=== PATIENT | male | born 1985 | race Caucasian/White ===

== ENCOUNTER 2022-02-28 09:50 | Inpatient (IN) ==
[2022-02-28] MEDS ORDERED: ceFAZolin 2,000 MG in Water for inj. (sterile) 20 ML IVP ONE (10:21)
[2022-02-28] MEDS ORDERED: Iopamidol - 370 500 ML MLS IVP ONE (10:21)
[2022-02-28 11:04] LABS: Basophils % 0.2 %; Eosinophils % 0.6 %; Hematocrit 43.3 % (37.5-50.1); Hemoglobin 14.8 g/dL (12.9-16.9); Immature Granulocytes % 0.9 % (0-4); Lymphocytes # 1.3 K/mcL (0.6-4.6); Mean Corpuscular HGB Conc 34.2 g/dL (31.6-35.5); Mean Corpuscular Hemoglobin 30.4 pg (28.0-33.3); Mean Corpuscular Volume 88.9 fL (83.0-100.0); Mean Platelet Volume 9.5 fL (9.4-12.4); Monocytes # 0.3 K/mcL (0.0-1.3); Monocytes % 5.2 %; Neutrophils # 3.8 K/mcL (1.6-8.9); Platelet Count 221 K/mcL (140-400); Red Blood Count 4.87 M/mcL (4.19-5.50); Segmented Neutrophils % 69.1 %; White Blood Count 5.4 K/mcL (4.3-11.1)
[2022-02-28 11:22] LABS: BUN/Creatinine Ratio 11 (6-26); Blood Urea Nitrogen 9 mg/dL (6-20); C-Reactive Protein 54 mg/L (Less than 10); Calcium 9.9 mg/dL (8.6-10.3); Carbon Dioxide 29 mEq/L (23-29); Chloride 99 mEq/L (98-107); Glucose 181 mg/dL (70-105); Osmolality,Calculated 283 (280-300); Potassium 4.3 mEq/L (3.5-5.1); Sodium 135 mEq/L (136-145)
[2022-02-28] MEDS ORDERED: Ibuprofen 400 MG TABLET PO PRN (12:18)
[2022-02-28] MEDS ORDERED: Ondansetron 4 MG/2 ML VIAL IVP PRN (12:18)
[2022-02-28] MEDS ORDERED: Melatonin 3 MG TABLET PO PRN (12:18)
[2022-02-28] MEDS ORDERED: Dextrose Gel 15 GM/37.5 ML TUBE PO PRN ×2 (12:21)
[2022-02-28] MEDS ORDERED: D5% in Water 1,000 ML IVC PRN (12:21)
[2022-02-28] MEDS ORDERED: *HR* Dextrose 50 % in Water (Syg) 50 ML SYRINGE IVP PRN (12:21)
[2022-02-28] MEDS ORDERED: Nicotine 2 MG GUM BC PRN (13:27)
[2022-02-28] MEDS: Nicotine 21 MG PATCH.TD24 TD SCH (14:05)
[2022-02-28] MEDS: CeFAZolin 2,000 MG/120 ML BAG IVPB SCH (18:14)
[2022-02-28] MEDS: Acetaminophen 325 MG TABLET PO PRN (18:53)
[2022-02-28] MEDS: Ibuprofen 400 MG TABLET PO PRN (21:01)
[2022-03-01] MEDS: CeFAZolin 2,000 MG/120 ML BAG IVPB SCH ×3 (03:09→18:47)
[2022-03-01] MEDS: Nicotine 21 MG PATCH.TD24 TD SCH (08:13)
[2022-03-01] MEDS: lisinopriL 10 MG TABLET PO SCH (11:57)
[2022-03-01] MEDS: Acetaminophen 325 MG TABLET PO PRN (20:32)
[2022-03-02] MEDS: CeFAZolin 2,000 MG/120 ML BAG IVPB SCH ×2 (02:37→11:11)
[2022-03-02 03:03] LABS: Hematocrit 42.4 % (37.5-50.1); Mean Corpuscular Hemoglobin 29.2 pg (28.0-33.3); Mean Corpuscular Volume 88.5 fL (83.0-100.0); Mean Platelet Volume 9.2 fL (9.4-12.4); Platelet Count 213 K/mcL (140-400); Red Blood Count 4.79 M/mcL (4.19-5.50); Red Cell Distribution Width 12.7 % (11.5-14.5)
[2022-03-02 03:25] LABS: BUN/Creatinine Ratio 16 (6-26); Blood Urea Nitrogen 13 mg/dL (6-20); Calcium 9.3 mg/dL (8.6-10.3); Carbon Dioxide 28 mEq/L (23-29); Chloride 100 mEq/L (98-107); Glucose 129 mg/dL (70-105); Osmolality,Calculated 282 (280-300); Potassium 4.5 mEq/L (3.5-5.1); Sodium 135 mEq/L (136-145)
[2022-03-02] MEDS: lisinopriL 10 MG TABLET PO SCH (08:11)
[2022-03-02] MEDS: Nicotine 21 MG PATCH.TD24 TD SCH (08:11)
[2022-03-02] MEDS: Ibuprofen 400 MG TABLET PO PRN (08:17)
[2022-03-02 11:29] VITALS: BP 149/87; PULSE 73; TEMP 97.4; O2SAT 97
== END 2022-03-02 12:46 | disposition home or self-care (01) | DRG 383 ==
LOC: 2ANU 09:50 → EMEROOARM 09:50 → SUATTDRO 12:32 → 2ANU 13:20
PROVIDERS: ADMIT Internal Medicine; ATTEND Pharmacist